=== PATIENT | female | born 2000 | race Caucasian/White ===

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

== ENCOUNTER 2023-05-07 09:48 | Emergency (ER) | payer OTHER, BC ==
[2023-05-07 10:03] VITALS: BP 138/94
[2023-05-07 11:43] VITALS: PULSE 102
== END 2023-05-07 11:43 | disposition home or self-care (01) ==
LOC: MW.ED 09:48
DX: S20.212A Contusion of left front wall of thorax, initial encounter (principal); F17.210 Nicotine dependence, cigarettes, uncomplicated; V43.52XA Car driver injured in collision with other type car in traffic accident, initial encounter; Y92.410 Unspecified street and highway as the place of occurrence of the external cause
CPT/HCPCS: 71101-26-LT; 71101-LT; 99283; 99284